=== PATIENT | female | born 1965 | race Caucasian/White ===

== ENCOUNTER 2023-02-23 12:38 | Emergency (ER) | payer OTHER ==
[~2023-02-23] VITALS: Ht 162.6 cm; Wt 88.5 kg
[2023-02-23 12:54] VITALS: BP 128/79
--- NOTE | 2023-02-23 13:02 | NUR ---
AMB. TO BED 1 WITH NO ACUTE DISTRESS
[2023-02-23] MEDS ORDERED: ATA25 PO (13:18)
--- NOTE | 2023-02-23 13:27 | NUR ---
Hernan JUSTICE MD AT BS TO EXAMIE PT , SHE C/O OF WEKNESS OM ET LEFT SIDE BUT NO WEKANESS NOTED GAIT STEADY EQUAL SHIFT SUPERVISOR MELTING ND PUSHES , NODRIFT, NOSLURRED SPEECH , A/O X4 , NO FACIAL DROOP,O CP OR LEWIS
== END 2023-02-23 13:33 | disposition home or self-care (01) ==
LOC: MED 12:38
DX: R53.1 Weakness (principal); F41.9 Anxiety disorder, unspecified
CPT/HCPCS: 99283